=== PATIENT | female | born 1990 | race Two or more races ===

== ENCOUNTER 2025-04-27 13:22 | Inpatient (IN) | payer OTHER ==
[~2025-04-27] VITALS: Ht 167.6 cm; Wt 92.1 kg
[2025-04-27] MEDS ORDERED: PRENATABS FA T1 EACH PO (14:03)
[2025-04-27 14:22] LABS: BASO % 0.2 % (0.1-1.2); EOS # 0.05 (0.04-0.54); EOS % 0.6 % (0.7-7.0); LYMPH # 1.84 (1.18-3.74); LYMPH % 20.4 % (19.3-53.1); MEAN PLATELET VOLUME 11.70 fl (9.4-12.4); MONO # 0.61 (0.24-0.82); MONO % 6.8 % (4.7-12.5); NEUT # 6.42 (1.56-6.13); NEUT % 71.3 % (34.0-71.1); RED CELL DISTRIBUTION WIDTH 13.4 % (11.6-14.4)
[2025-04-27 14:51] LABS: COVID-19 AG NEGATIVE (NEGATIVE)
[2025-04-27 14:53] LABS: INR 0.94
[2025-04-27 15:00] LABS: ALT/SGPT 13.0 U/L (12-78); AST/SGOT 15.0 U/L (15-37); BILIRUBIN TOTAL 0.19 mg/dL (0.3-1.2); BUN CREA RATIO 13.0 (7.0-25.0); CREATININE SERUM 0.52 mg/dL (0.55-1.02); GFR 133.43; GLOBULINA 3.4 G/DL (2.4-3.5); GLUCOSE FASTING 82.0 mg/dL (65-100); OSMOLALITY SERUM 278.0 MOSM/KG (275-295)
[2025-05-02 05:51] VITALS: BP 118/83
[2025-05-02] MEDS ORDERED: MORPHINE SULFATE 4 MG/ML CARTRIDGE IV PRN (11:00)
[2025-05-02] MEDS ORDERED: OXYTOCIN 1,000 ML IV SCH (11:00)
[2025-05-02] MEDS ORDERED: CEFAZOLIN SODIUM 1,000 MG VIAL IV ONE (12:00)
[2025-05-02] MEDS ORDERED: ERYTHROMYCIN BASE OPHT 1GM EACH TUBE OP ONE (12:00)
[2025-05-02] MEDS ORDERED: OXYTOCIN 10 UNITS/ML VIAL IV ONE (12:00)
[2025-05-02 20:00] VITALS: BP 125/80
[2025-05-03 01:29] VITALS: BP 114/72
[2025-05-03 09:28] VITALS: BP 119/77
[2025-05-03] MEDS ORDERED: MORPHINE SULFATE 4 MG/ML CARTRIDGE IV PRN (11:00)
[2025-05-03] MEDS ORDERED: KETOROLAC TROMETHAMINE 30 MG VIAL IV NR (11:00)
[2025-05-03] MEDS ORDERED: FF) RHO(D) IMMUNE GLOBULIN (POM) IM NR (11:15)
[2025-05-03] MEDS ORDERED: ACETAMINOPHEN 325 MG TABLET PO SCH (12:00)
[2025-05-03] MEDS ORDERED: KETOROLAC TROMETHAMINE 30 MG VIAL IV SCH (12:00)
[2025-05-03 13:24] LABS: BASO % 0.1 % (0.1-1.2); EOS # 0.04 (0.04-0.54); EOS % 0.4 % (0.7-7.0); LYMPH # 1.44 (1.18-3.74); LYMPH % 15.1 % (19.3-53.1); MEAN PLATELET VOLUME 11.60 fl (9.4-12.4); MONO # 0.64 (0.24-0.82); MONO % 6.7 % (4.7-12.5); NEUT # 7.38 (1.56-6.13); NEUT % 77.3 % (34.0-71.1); RED CELL DISTRIBUTION WIDTH 14.0 % (11.6-14.4)
[2025-05-03 16:34] VITALS: BP 137/82
[2025-05-04] VITALS: BP 129/85
[2025-05-04] MEDS ORDERED: OxyCODONE HCL 5 MG TABLET (ROXICODONE) PO PRN (06:00)
[2025-05-04 08:52] VITALS: BP 136/88
[2025-05-04 09:13] VITALS: BP 102/59; O2SAT 99
[2025-05-04 16:48] VITALS: BP 130/80
[2025-05-05] VITALS: BP 122/82
[2025-05-05 08:00] VITALS: BP 92/57
== END 2025-05-05 15:04 | disposition home or self-care (01) | DRG 785 ==
LOC: O/R 05-02 06:00 → OB/GYN 05-02 06:00 → LDR 05-02 07:00 → OB/GYN 05-02 11:13 → LDR 05-02 13:21 → OB/GYN 05-05 15:04
PROVIDERS: ADMIT Obstetrics & Gynecology; ATTEND Obstetrics & Gynecology
PROC: 0UB70ZZ Excision of Bilateral Fallopian Tubes, Open Approach (ICD-10-PCS; 2025-05-02)
PROC: 0DNW0ZZ Release Peritoneum, Open Approach (ICD-10-PCS; 2025-05-02)
PROC: 4A1HXCZ Monitoring of Products of Conception, Cardiac Rate, External Approach (ICD-10-PCS; 2025-05-02)
PROC: 10D00Z1 Extraction of Products of Conception, Low, Open Approach (ICD-10-PCS; principal; 2025-05-02 07:00)
DX: O34.211 Maternal care for low transverse scar from previous cesarean delivery (principal); Z3A.38 38 weeks gestation of pregnancy; Z30.2 Encounter for sterilization; Z37.0 Single live birth